=== PATIENT | male | born 1965 | race Caucasian/White ===

== ENCOUNTER → 2019-03-29 14:04 | Outpatient (CLI) | payer OTHER ==
--- NOTE | 2019-04-02 13:51 | ST ---
PATIENT:AISHA ULRICH MEDICAL RECORD: [id number] SEX: M LOCATION:[facility] ORDER #: ADMISSION DATE: 03/29/19 AGE OF PATIENT: 54 REFERRING PHYSICIAN: INTERPRETING PHYSICIAN: SOURAV AHN MD DATE OF SERVICE: 03/29/2019 PROCEDURE: Treadmill stress test. TECHNIQUE: Baseline ECG is normal. Exercised for 10 minutes on Antonio protocol. Maximum heart rate 171 beats per minute, 100% of max predicted. No ECG changes of ischemia. No symptoms of ischemia. Normal blood pressure response to exercise. No arrhythmias noted. Good exercise tolerance for age. IMPRESSION: Negative treadmill stress test. Good exercise tolerance. TRANSINT:[id number] Voice Confirmation ID: [id number] DOCUMENT ID: [id number] SOURAV AHN MD at 1351 CC: [id number] DICTATION DATE: 04/01/19 1259 WELL SERVICING RIG OPERATOR: 04/01/19 1504 DEP CLI 03/29/19 [id number] [place] [address]
== END | disposition home or self-care (01) ==
LOC: D.HCCARDIO 14:04
PROVIDERS: ATTEND Internal Medicine Interventional Cardiology
DX: I20.9 Angina pectoris, unspecified (principal)

== ENCOUNTER 2020-11-17 06:14 | Day surgery (SDC) | payer OTHER ==
[~2020-11-17] VITALS: Ht 180.3 cm; Wt 120.0 kg
[~2020-11-17 06:14] MED LIST: ASHWAGANDHA; COZAAR50 MG PO; FLUTICASONE PRO16 GM; HYDROCHLOROTH12.5 M1 PO; IPRATROPIUM BRO30 M1 NASAL; MAGNESIUM OXID500 MG PO; MULTI-DAY VITAM1 TAB PO; OSTEO BI-FLEX1 EAC1 PO; PERCOCET 10-321 EAC1 PO; PROTONIX20 MG; VISTARIL50 MG PO; VITAMIN D-32000 UNI1 PO; ZINC-220220 MG PO
[2020-11-17 06:39] LABS: BASOPHILS 0.5 % (0-2); EOSINOPHILS 1.9 % (0-7); HEMATOCRIT 44.3 % (42.0-54.0); HEMOGLOBIN 14.9 g/dL (13.5-17.5); LYMPHOCYTES 36.7 % (15-50); MCH 27.9 pg (26.0-34.0); MCHC 33.6 g/dL (31.0-37.0); MEAN PLATELET VOLUME 6.9 fL (7.4-10.4); MONOCYTES 6.6 % (2-11); NEUTROPHILS 54.3 % (40-80); RBC 5.34 10x6/uL (4.20-6.10); RDW 13.7 % (11.5-14.5); WBC 7.1 10x3/uL (4.8-10.8)
[2020-11-17 06:41] LABS: PLATELET COUNT 240 10x3/uL (130-400)
[2020-11-17 07:02] LABS: CALC OSMOLALITY 281 mosm/kg (275-300); CALCIUM 9.1 mg/dL (8.5-10.1); CARBON DIOXIDE 25.9 mmol/L (21.0-32.0); CHLORIDE - SERUM 103 mmol/L (98-107); GLUCOSE 110 mg/dL (74-106); POTASSIUM - SERUM 3.7 mmol/L (3.5-5.1); SODIUM 140 mmol/L (136-145); UREA NITROGEN 19 mg/dL (7-18); eGFR NON AFRICAN AMERICAN 83 mL/min (90-120)
[2020-11-17] MEDS ORDERED: TESSALON PERLE100 MG PO ×2 (07:46)
[2020-11-17 07:54] VITALS: BP 133/84; Ht 180.3 cm; Wt 120.0 kg
--- NOTE | 2020-11-17 10:14 | NUR ---
RECEIVED FROM PROCEDURE, AWAKE AT 0925 0940 PASSING FLATUS. REQUESTS TO GET UP AND GET DRESSED. IV REMOVED W CATH INTACT 1000 DISCHARGED VIA W ADULT SPINDLE CARVER AFTER REVIEW OF DISCHARGE INSTRUCTIONS
--- NOTE | 2020-11-18 09:09 | OP ---
PATIENT NAME: AISHA ULRICH MEDICAL RECORD: [id number] :67 LOCATION:[facility] ADMISSION DATE: SURGEON: ALFREDITO KENDALL MD DATE OF OPERATION: 11/17/2020 PROCEDURE: Colonoscopy. PREOPERATIVE DIAGNOSES: Rectal bleeding, history of colon polyps. MEDICATION: Propofol 300 mg. DESCRIPTION OF PROCEDURE: The patient was made comfortable in the left lateral position. The colonoscope was inserted through the rectum and advanced to the cecum, identified by the ileocecal valve and appendiceal orifice. The quality of the prep was good. The entire examined mucosa was normal. There were small nonbleeding internal hemorrhoids viewed on retroflexion. The remainder of the exam was normal. The patient tolerated the procedure well. FINAL DIAGNOSIS: Nonbleeding internal hemorrhoids. Remainder of exam normal. PLAN: Advance diet. Repeat colonoscopy in 3-5 years given previous history of polyps. Fiber supplements. TRANSINT:[id number] Voice Confirmation ID: [id number] DOCUMENT ID: [id number] ALFREDITO KENDALL MD at 0909 CC: [id number] DICTATION DATE: 11/17/20918 TRUCKING CONTRACTOR: 11/17/20 0948 [facility] 11/17/20 [facility] [address] [place] [address]
== END 2020-11-17 10:00 | disposition home or self-care (01) ==
LOC: D.OPS 06:14
PROVIDERS: Anesthesiology; ATTEND Internal Medicine Gastroenterology
DX: K92.1 Melena (principal); Z86.010 Personal history of colon polyps; K64.8 Other hemorrhoids; R12 Heartburn